=== PATIENT | male | born 1990 | race Caucasian/White ===

== ENCOUNTER 2020-07-04 10:57 | Emergency (ER) | payer SELFPAY ==
[~2020-07-04] VITALS: Ht 185.4 cm; Wt 90.7 kg
[2020-07-04] MEDS ORDERED: PROPARACAINE HCL 0.5% OP SOLN 15 ML BTL OP ONE (11:15)
[2020-07-04] MEDS ORDERED: FLUORESCEIN SOD(OPTH) 1 MG STRP OP ONE (11:15)
[2020-07-04] MEDS ORDERED: EYE IRRIGATION (OPTH) 120 ML BTL ONE (11:20)
[2020-07-04] MEDS ORDERED: TETRACAINE HCL 0.5% OPTH SOLN 4 ML BTL OP ONE (11:30)
[2020-07-04] MEDS ORDERED: CIPRO HC OTIC S10 ML OT (12:04)
== END 2020-07-04 12:34 | disposition home or self-care (01) ==
LOC: ER 11:07
DX: H16.131 Photokeratitis, right eye (principal); H57.11 Ocular pain, right eye; K21.9 Gastro-esophageal reflux disease without esophagitis; F17.210 Nicotine dependence, cigarettes, uncomplicated
CPT/HCPCS: 99283